=== PATIENT | male | born 1995 | race African-American/Black ===

== ENCOUNTER 2023-07-22 14:12 | Outpatient (CLI) | payer OTHER, SELFPAY | END 2023-07-22 14:13 | disposition home or self-care (01) | PROVIDERS: Visit Provider Emergency Medicine Emergency Medical Services | DX: S89.91XA Unspecified injury of right lower leg, initial encounter (principal); S89.92XA Unspecified injury of left lower leg, initial encounter; X58.XXXA Exposure to other specified factors, initial encounter; Y92.9 Unspecified place or not applicable | CPT/HCPCS: A0998 ==